=== PATIENT | male | born 1980 | race Caucasian/White ===

== ENCOUNTER 2017-11-14 14:21 | Emergency (ER) | payer SELFPAY ==
[~2017-11-14] VITALS: Ht 170.2 cm; Wt 90.9 kg
[2017-11-14 14:32] VITALS: BP 130/78; PULSE 83; TEMP 98.8
== END 2017-11-14 17:00 | disposition home or self-care (01) ==
LOC: COL.ER 14:21
DX: S61.411A Laceration without foreign body of right hand, initial encounter (principal); Z23 Encounter for immunization; W26.8XXA Contact with other sharp object(s), not elsewhere classified, initial encounter; Y92.89 Other specified places as the place of occurrence of the external cause